=== PATIENT | female | born 1950 ===

== ENCOUNTER 2018-12-16 09:17 | Day surgery (SDC) | payer OTHER ==
[~2018-12-16 09:17] MED LIST: ATORVASTATIN CA40 MG PO; CALCITRIOL0.5 MCG PO; ENALAPRIL MALEA10 MG PO; GLIPIZIDE XL2.5 MG PO; ZETIA10 MG PO
== END 2018-12-16 18:30 | disposition home or self-care (01) ==
LOC: CIR.AMB 09:17
DX: M75.122 Complete rotator cuff tear or rupture of left shoulder, not specified as traumatic (principal); M19.012 Primary osteoarthritis, left shoulder